=== PATIENT | male | born 1985 | race Caucasian/White ===

== ENCOUNTER 2018-12-11 08:39 | Observation (INO) ==
[2018-12-11 09:05] LABS: Bilirubin,Urine Negative (Negative); Blood,Urine Negative (Negative); Color,Urine Dark Yellow (Yellow); Glucose,Urine (UA) Normal (Normal); Ketones,Urine Negative (Negative); Leukocyte Esterase,Urine Negative (Negative); Nitrite,Urine Negative (Negative); Protein,Urine Trace mg/dL (Neg-Trace); Specific Gravity,Urine 1.025 (1.010-1.025); Urobilinogen,Urine Normal (Normal)
[2018-12-11 09:07] LABS: Hyaline Casts,Urine None Seen per lpf (None-Few); Squamous Epithelial Cell,Urine Few per lpf (None-Few)
[2018-12-11 09:15] LABS: Clarity,Urine Slightly Hazy (Clear)
[2018-12-11 09:35] LABS: Bacteria,Urine Few per hpf (None-Few); Granular Casts,Urine Few per lpf (None Seen); Mucus,Urine Few (Few); RBC,Urine 0-3 per hpf (0-3); WBC,Urine 0-3 per hpf (0-3)
[2018-12-11] MEDS ORDERED: Ketorolac 15 MG/ML VIAL IVP ONE ×3 (09:39→14:43)
[2018-12-11] MEDS ORDERED: 0.9 % Sodium Chloride 1,000 ML IVC ONE (09:39)
[2018-12-11] MEDS ORDERED: Ondansetron 8 MG in 0.9 % Sodium Chloride 50 ML IVPB ONE (09:41)
[2018-12-11] MEDS ORDERED: Ondansetron 4 MG/2 ML VIAL IVP ONE (10:00)
[2018-12-11 10:03] LABS: Basophils % 0.4 %; Eosinophils # 0.2 K/mcL (0.0-0.6); Eosinophils % 1.7 %; Hematocrit 41.9 % (37.5-50.1); Hemoglobin 14.6 g/dL (12.9-16.9); Immature Granulocytes % 0.5 % (0-4); Lymphocytes # 2.1 K/mcL (0.6-4.6); Lymphocytes % 21.4 %; Mean Corpuscular HGB Conc 34.8 g/dL (31.6-35.5); Mean Corpuscular Hemoglobin 31.3 pg (28.0-33.3); Mean Corpuscular Volume 89.7 fL (83.0-100.0); Mean Platelet Volume 9.8 fL (9.4-12.4); Monocytes # 1.1 K/mcL (0.0-1.3); Monocytes % 11.1 %; Neutrophils # 6.4 K/mcL (1.6-8.9); Platelet Count 297 K/mcL (140-400); Red Blood Count 4.67 M/mcL (4.19-5.50); Red Cell Distribution Width 11.7 % (11.5-14.5); Segmented Neutrophils % 64.9 %; White Blood Count 9.8 K/mcL (4.3-11.1)
[2018-12-11 10:27] LABS: Alanine Aminotransferase 26 Units/L (7-52); Albumin/Globulin Ratio 1.2 (1.1-2.2); Alkaline Phosphatase 59 Units/L (34-104); Aspartate Amino Transferase 18 Units/L (13-39); BUN/Creatinine Ratio 10 (6-26); Bilirubin,Total 0.6 mg/dL (0.3-1.0); Blood Urea Nitrogen 8 mg/dL (6-20); Carbon Dioxide 27 mEq/L (23-29); Chloride 100 mEq/L (98-107); Globulin 3.4 g/dL (2.4-3.5); Glucose 99 mg/dL (70-105); Lipase 21 Units/L (11-82); Osmolality,Calculated 282 (280-300); Potassium 3.6 mEq/L (3.5-5.1); Sodium 137 mEq/L (136-145); Total Protein 7.4 g/dL (6.4-8.9); eGFR For African Americans > 60 (> 60); eGFR For Non-African Americans > 60 (> 60)
[2018-12-11] MEDS ORDERED: Piperacillin/Tazobactam 3.375 GM in Water for inj. (sterile) 20 ML IVP ONE (11:25)
[2018-12-11] MEDS ORDERED: 0.9 % Sodium Chloride 1,000 ML IVC SCH (14:40)
[2018-12-11] MEDS ORDERED: MetroNIDAZOLE 500 MG/100 ML 500 MG/100 ML BAG IVPB SCH (16:00)
[2018-12-11] MEDS: 0.9 % Sodium Chloride 1,000 ML IVC SCH (16:10)
[2018-12-11] MEDS: Ondansetron 4 MG/2 ML VIAL IVP PRN (16:14)
[2018-12-11] MEDS ORDERED: Ondansetron 4 MG/2 ML VIAL IVP SCH (18:00)
[2018-12-11] MEDS: Ketorolac 15 MG/ML VIAL IVP SCH ×2 (18:26→23:57)
[2018-12-12] MEDS: Ketorolac 15 MG/ML VIAL IVP SCH ×5 (06:11→23:45)
[2018-12-12] MEDS: 0.9 % Sodium Chloride 1,000 ML IVC SCH ×2 (08:11→23:34)
[2018-12-12] MEDS: methylPREDNISolone 125 MG/2 ML VIAL IVP SCH ×3 (09:41→23:36)
[2018-12-12] MEDS: Sucralfate 1 GM TABLET PO SCH ×3 (09:41→17:11)
[2018-12-12] MEDS: MetroNIDAZOLE 500 MG/100 ML 500 MG/100 ML BAG IVPB SCH ×3 (09:41→23:34)
[2018-12-12] MEDS: Ondansetron 4 MG/2 ML VIAL IVP PRN (18:52)
[2018-12-13] MEDS: Ketorolac 15 MG/ML VIAL IVP SCH ×2 (05:56→13:01)
[2018-12-13 07:45] LABS: Basophils % 0.1 %; Eosinophils % 0.1 %; Hematocrit 38.2 % (37.5-50.1); Hemoglobin 13.2 g/dL (12.9-16.9); Immature Granulocytes % 0.5 % (0-4); Lymphocytes # 1.3 K/mcL (0.6-4.6); Lymphocytes % 15.3 %; Mean Corpuscular HGB Conc 34.6 g/dL (31.6-35.5); Mean Corpuscular Hemoglobin 32.1 pg (28.0-33.3); Mean Corpuscular Volume 92.9 fL (83.0-100.0); Mean Platelet Volume 10.1 fL (9.4-12.4); Monocytes # 0.2 K/mcL (0.0-1.3); Monocytes % 2.1 %; Platelet Count 301 K/mcL (140-400); Red Blood Count 4.11 M/mcL (4.19-5.50); Red Cell Distribution Width 11.5 % (11.5-14.5); Segmented Neutrophils % 81.9 %; White Blood Count 8.5 K/mcL (4.3-11.1)
[2018-12-13 08:06] LABS: BUN/Creatinine Ratio 16 (6-26); Blood Urea Nitrogen 12 mg/dL (6-20); Calcium 8.5 mg/dL (8.6-10.3); Carbon Dioxide 25 mEq/L (23-29); Chloride 101 mEq/L (98-107); Glucose 170 mg/dL (70-105); Osmolality,Calculated 290 (280-300); Sodium 138 mEq/L (136-145); eGFR For African Americans > 60 (> 60); eGFR For Non-African Americans > 60 (> 60)
[2018-12-13] MEDS: Sucralfate 1 GM TABLET PO SCH ×2 (08:21→11:53)
[2018-12-13] MEDS: methylPREDNISolone 125 MG/2 ML VIAL IVP SCH (08:21)
[2018-12-13] MEDS: MetroNIDAZOLE 500 MG/100 ML 500 MG/100 ML BAG IVPB SCH (08:21)
[2018-12-13 08:28] VITALS: BP 116/77
[2018-12-13 08:47] LABS: Platelet Estimate Normal (Normal)
[2018-12-13] MEDS: 0.9 % Sodium Chloride 1,000 ML IVC SCH (13:46)
[2018-12-15 13:11] LABS: Saccharomyces cerevisiae IgA 9.2 Units (0.0-24.9)
== END 2018-12-13 15:25 | disposition home or self-care (01) ==
LOC: EMEROOARM 08:39 → 2NENU 08:39 → CDU 17:02 → 3ANU 12-12 17:05
PROVIDERS: ADMIT Surgery; ATTEND Surgery